=== PATIENT | male | born 1960 | race Caucasian/White ===

== ENCOUNTER 2017-02-28 15:24 | Emergency (ER) | payer OTHER ==
[~2017-02-28] VITALS: Ht 180.3 cm; Wt 77.0 kg
[~2017-02-28 15:24] MED LIST: ASPI1TAB7; FENO160T2 PO; NITR0.4D2 TD; PLAV75TA PO
[2017-02-28 15:28] VITALS: BP 109/78; PULSE 100; RESP 20; TEMP 99.6; O2SAT 96
[2017-02-28] MEDS ORDERED: CIPR-9 PO (15:48)
[2017-02-28] MEDS ORDERED: NITR1SUB3 SL (15:48)
[2017-02-28] MEDS ORDERED: PREV15CA15 PO (15:48)
[2017-02-28] MEDS ORDERED: META28PO (15:48)
[2017-02-28] MEDS ORDERED: PLAV75TA29 PO (15:48)
[2017-02-28] MEDS ORDERED: ASPI1TAB69 PO (15:48)
[2017-02-28] MEDS ORDERED: FENO160T PO (15:48)
[2017-02-28 15:59] VITALS: BP 121/89; PULSE 88; RESP 18; O2SAT 98
[2017-02-28] MEDS ORDERED: SODIUM CHLOR 0.9% 1000 ML INJ 1,000 ML IV SCH (16:02)
[2017-02-28 16:07] LABS: AUTOMATED NEUTROPHIL # 4.9 TH/MM3 (1.8-7.7); BASOPHIL # 0.2 TH/MM3 (0-0.2); BASOPHIL % 2.7 % (0.0-2.0); EOSINOPHIL # 0.2 TH/MM3 (0-0.4); EOSINOPHIL % 3.3 % (0.0-4.0); HEMO FLAGS DIFF FINAL; LYMPH % 13.3 % (9.0-44.0); LYMPHOCYTE # 0.9 TH/MM3 (1.0-4.8); MEAN CELL VOLUME 88.6 FL (80.0-100.0); MEAN CORPUSCULAR HEMOGLOBIN 29.6 PG (27.0-34.0); MEAN CORPUSCULAR HGB CONC 33.5 % (32.0-36.0); MONO % 7.3 % (0.0-8.0); NEUT % 73.4 % (16.0-70.0); PLATELET COUNT 170 TH/MM3 (150-450); RED BLOOD COUNT 5.42 MIL/MM3 (4.50-5.90); WHITE BLOOD COUNT 6.7 TH/MM3 (4.0-11.0)
[2017-02-28] MEDS ORDERED: SODIUM CHLORIDE 0.9% FLUSH 10 ML FLUSH IV FLUSH PRN (16:15)
[2017-02-28] MEDS ORDERED: PIPERACIL-TAZO 3.375 GM PREMIX 50 ML IV ONE (16:15)
[2017-02-28 16:16] LABS: CHLORIDE 107 MEQ/L (98-107); POTASSIUM 3.7 MEQ/L (3.5-5.1); SODIUM (NA) 139 MEQ/L (136-145)
[2017-02-28 16:20] LABS: ANION GAP 9 MEQ/L (5-15); BICARBONATE 23.1 MEQ/L (21.0-32.0); BLOOD UREA NITROGEN 14 MG/DL (7-18)
[2017-02-28] MEDS ORDERED: IOHEXOL 350 MG/ML 10 ML VIAL (for RAD DIAG) IV ONE (16:21)
[2017-02-28 16:23] LABS: ALT (GPT) 47 U/L (12-78); AST (GOT) 32 U/L (15-37); GLOMERULAR FILTRATION RATE 88 ML/MIN (>89)
[2017-02-28 16:24] LABS: TOTAL BILIRUBIN ADULT 0.8 MG/DL (0.2-1.0)
[2017-02-28 16:26] LABS: ALKALINE PHOSPHATASE 60 U/L (45-117)
[2017-02-28 16:32] VITALS: BP 102/69; PULSE 74; RESP 17; O2SAT 97
--- NOTE | 2017-02-28 16:54 | RADHPO ---
EXAM DATE/TIME: 02/28/2017 16:09 [place] COMPARISON: No previous studies available for comparison. INDICATIONS : Right lower quadrant pain for one week. IV CONTRAST: 75 cc Omnipaque 350 (iohexol) IV ORAL CONTRAST: No oral contrast ingested. RADIATION DOSE: 8.61 CTDIvol (mGy) MEDICAL HISTORY : Gastroesophageal reflux disease. Cardiovascular disease SURGICAL HISTORY : Coronary artery stent. ENCOUNTER: Initial ACUITY: 1 week PAIN SCALE: 5/10 LOCATION: Right lower quadrant TECHNIQUE: Volumetric scanning of the abdomen and pelvis was performed. Using automated exposure control and ad justment of the mA and/or kV according to patient size, radiation dose was kept as low as reasonably achievable to obtain optimal diagnostic quality images. FINDINGS: There are centrilobular emphysematous changes throughout both lungs. The liver and spleen are free of focal defects. The gallbladder and pancreas demonstrate no abnormality. The adrenal glands are alexandra l. The kidneys demonstrate no evidence of solid renal mass or hydronephrosis. No free fluid or abdomi nal masses are identified. No para-aortic adenopathy is seen. Examination of the right lower quadrant demonstrates no abnormality. The appendix is identified and appears normal. There is a single simple cyst in the left kidney measuring 2 cm. Examination of the pelvis demonstrates no evidence of free fluid or pelvic mass. No abnormally enlarg ed inguinal or retroperitoneal lymph nodes are present. The bladder is unremarkable. There is a moder ate amount of fecal material throughout the colon. CONCLUSION: 1. No evidence of acute abdominal or pelvic process. No masses are identified. Constipation Antonio Ly MD on February 28, 2017 at 16:50 Board Certified Radiologist. This report was verified electronically.
--- NOTE | 2017-02-28 17:30 | PD ---
HPI Chief Complaint: Abdominal Pain Time Seen by Provider: 15:36 Travel History International Travel<30 days: No Contact w/Intl Traveler<30days: No Traveled to known affect area: No History of Present Illness HPI 56-year-old male arrives from his primary care provider's office. He has had abdominal pain and chills. On exam at Dr. Cardenas's office there is tenderness in the right lower quadrant raising concern for appendicitis. The patient does report decreased oral intake and decreased appetite. He does report some mild constant pain. Evidently he's had pain intermittently for weeks leading up to today. Fever of 100.[address] Cardenas's office. PFSH Past Medical History Hx Anticoagulant Therapy: Yes (PLAVIX) Arthritis: No Asthma: No Heart Rhythm Problems: No Cancer: No Cardiovascular Problems: Yes High Cholesterol: No Chest Pain: No Congestive Heart Failure: No COPD: No Cerebrovascular Accident: No Coronary Artery Disease: Yes Diabetes: No Diminished Hearing: No Endocrine: No Gastrointestinal Disorders: No GERD: Yes Glaucoma: No Genitourinary: No Hepatitis: No Hiatal Hernia: No Hypertension: No Immune Disorder: No Implanted Vascular Access Dvce: No Kidney Stones: No Musculoskeletal: No Neurologic: Yes (PERIPHERAL NEUROPATHY) Psychiatric: No Reproductive: No Respiratory: No Integumentary: No Migraines: No Myocardial Infarction: Yes Seizures: No Thyroid Disease: No Influenza Vaccination: Yes ?: Not Past Surgical History Cardiac Surgery: Yes Coronary Stent: Yes (STENTS X TWO) Neurologic Surgery: Yes (PERIPHERAL NEUROPATHY) Tonsillectomy: Yes (T & A) Other Surgery: Yes (T&A) Social History Alcohol Use: No Tobacco Use: Yes ( ) Substance Use: No Allergies-Medications (Allergen,Severity, Reaction): Coded Allergies: Benadryl (Verified Allergy, Severe, Hives, 02/28/17) Erythromycin (Verified Allergy, Severe, Nausea/Vomiting, 02/28/17) Tylenol (Verified Allergy, Unknown, Swelling, 02/28/17) Reported Meds & Prescriptions Reported Meds & Active Scripts Active Reported Metamucil Smooth Texture (Psyllium Hydrophilic Mucilloid) 28 % Pow Fenofibrate 160 Mg Tab 160 Mg PO DAILY Cipro (Ciprofloxacin HCl) 500 Mg Tab 500 Mg PO BID Nitroglycerin SL (Nitroglycerin) 0.4 Mg Subl 0.4 Mg SL DIRECTED PRN ONE TABLET UNDER THE TONGUE NEEDED FOR CHEST PAIN, MAY REPEAT EVERY FIVE MINUTES FOR A TOTAL OF 3 DOSES OR CALL 911 IF NO RELIEF Prevacid (Lansoprazole) 15 Mg Capdr 15 Mg PO DAILY Aspirin 81 Mg Tabdr 81 Mg PO DAILY Plavix (Clopidogrel Bisulfate) 75 Mg Tab 75 Mg PO DAILY Review of Systems Except as stated in HPI: all other systems reviewed are Neg General / Constitutional: Positive: Fever Gastrointestinal: Positive: Abdominal Pain Physical Exam Narrative GENERAL: 56-year-old male pleasant SKIN: Focused skin assessment warm/dry. HEAD: Atraumatic. Normocephalic. EYES: Pupils equal and round. No scleral icterus. No injection or drainage. ENT: No nasal bleeding or discharge. Mucous membranes pink and moist. NECK: Trachea midline. No JVD. CARDIOVASCULAR: Regular rate and rhythm. No murmur appreciated. RESPIRATORY: No accessory muscle use. Clear to auscultation. Breath sounds equal bilaterally. GASTROINTESTINAL: Soft. Tenderness to palpation in the right lower quadrant. MUSCULOSKELETAL: No obvious deformities. No clubbing. No cyanosis. No edema. NEUROLOGICAL: Awake and alert. No obvious cranial nerve deficits. Motor grossly within normal limits. Normal speech. PSYCHIATRIC: Appropriate mood and affect; insight and judgment normal. Data Data Last Documented VS Vital Signs Date Time Temp Pulse Resp B/P Pulse Ox O2 Delivery O2 Flow Rate FiO2 02/28/17 16:32 74 17 102/69 97 Room Air 02/28/17 15:28 99.6 Vital signs reviewed Orders Complete Blood Count With Diff (02/28/17 15:57) Comprehensive Metabolic Panel (02/28/17 15:57) Iv Access Insert/Monitor (02/28/17 15:57) Oximetry (02/28/17 15:57) Lipase (02/28/17 15:57) Ct Abd/Pel W Iv Contrast(Rout) (02/28/17 16:02) Ecg Monitoring (02/28/17 16:02) Sodium Chlor 0.9% 1000 Ml Inj (Ns 1000 M (02/28/17 16:02) Sodium Chloride 0.9% Flush (Ns Flush) (02/28/17 16:15) Piperacil-Tazo 3.375 Gm Premix (Zosyn 3. (02/28/17 16:15) Iohexol 350 Inj (Omnipaque 350 Inj) (02/28/17 16:21) Ondansetron Liq (Zofran Liq) (02/28/17 18:15) Labs Laboratory Tests Test 02/28/17 16:00 White Blood Count 6.7 TH/MM3 Red Blood Count 5.42 MIL/MM3 Hemoglobin 16.1 GM/DL Hematocrit 48.0 % Mean Corpuscular Volume 88.6 FL Mean Corpuscular Hemoglobin 29.6 PG Mean Corpuscular Hemoglobin 33.5 % Concent Red Cell Distribution Width 12.0 % Platelet Count 170 TH/MM3 Mean Platelet Volume 9.0 FL Neutrophils (%) (Auto) 73.4 % Lymphocytes (%) (Auto) 13.3 % Monocytes (%) (Auto) 7.3 % Eosinophils (%) (Auto) 3.3 % Basophils (%) (Auto) 2.7 % Neutrophils # (Auto) 4.9 TH/MM3 Lymphocytes # (Auto) 0.9 TH/MM3 Monocytes # (Auto) 0.5 TH/MM3 Eosinophils # (Auto) 0.2 TH/MM3 Basophils # (Auto) 0.2 TH/MM3 CBC Comment DIFF FINAL Differential Comment Sodium Level 139 MEQ/L Potassium Level 3.7 MEQ/L Chloride Level 107 MEQ/L Carbon Dioxide Level 23.1 MEQ/L Anion Gap 9 MEQ/L Blood Urea Nitrogen 14 MG/DL Creatinine 0.89 MG/DL Estimat Glomerular Filtration 88 ML/MIN Rate Random Glucose 89 MG/DL Calcium Level 8.5 MG/DL Total Bilirubin 0.8 MG/DL Aspartate Amino Transf 32 U/L (AST/SGOT) Alanine Aminotransferase 47 U/L (ALT/SGPT) Alkaline Phosphatase 60 U/L Total Protein 7.0 GM/DL Albumin 3.7 GM/DL Lipase 200 U/L [facility] Medical Decision Making Medical Screen Exam Complete: Yes Emergency Medical Condition: Yes Medical Record Reviewed: Yes Differential Diagnosis Constipation, Gastritis, Acute Cholecystitis, Biliary Colic, Pancreatitis, HARDIWCK , Hepatitis, Bowel Obstruction, Cystitis, Mesenteric Ischemia, AAA, Appendicitis , Renal Stone/Hydronephrosis, GERD, perforated viscous Narrative Course CBC & BMP Diagram 02/28/17 16:00 LFTs normal Lipase normal Last 24 hours Impressions Abdomen/Pelvis CT 02/28/17 1602 Signed Impressions: Service Date/Time: Tuesday, February 28, 2017 16:09 - CONCLUSION: 1. No evidence of acute abdominal or pelvic process. No masses are identified. Constipation Antonio Ly MD Patient has constipation. Fever is of less than 8 hours duration. Return precautions discussed specifically within the next 6-8 hours. Diet and lifestyle modification discussed. Follow up with Dr. Cardenas. Diagnosis Primary Impression: Abdominal pain Qualified Code: R10.31 - Right lower quadrant abdominal pain Additional Impression: Constipation Qualified Code: K59.00 - Constipation, unspecified constipation type Referrals: Momo Cardenas DO 2 days Additional Instructions: You have a choice when it comes to health care, and we are glad that you chose [email or web address]. Hopefully, we have met your expectations on today's visit. You are welcome to return to [email or web address] at any time, as we are committed to meeting the health care needs of our community. Med/Other Pt SpecificInfo: No Change to Meds Disposition: 01 DISCHARGE HOME Condition: Stable Teddy Palacios MD Feb 28, 2017 17:30
[2017-02-28] MEDS ORDERED: ONDANSETRON HCL 4 MG/5 ML UDC PO ONE (18:15)
== END 2017-02-28 18:19 | disposition home or self-care (01) ==
LOC: PHED 15:24
DX: R10.31 Right lower quadrant pain (principal); K59.00 Constipation, unspecified; G62.9 Polyneuropathy, unspecified; K21.9 Gastro-esophageal reflux disease without esophagitis; I25.10 Atherosclerotic heart disease of native coronary artery without angina pectoris; I25.2 Old myocardial infarction; Z72.0 Tobacco use
CPT/HCPCS: 74177; 80053; 83690; 85025; 96361; 96365; 99284; J2543; J7030; Q9967